=== PATIENT | female | born 1945 | race Caucasian/White ===

== ENCOUNTER 2022-10-28 13:54 | Emergency (ER) | payer OTHER ==
[2022-10-28 14:24] VITALS: BMI 17.6
[2022-10-28] MEDS ORDERED: ACETAMINOPHEN 1000 MG/100 ML BAG IVPB ONE (16:35)
[2022-10-28] MEDS ORDERED: LIDOCAINE 5% TOPICAL PATCH TP ONE (16:35)
[2022-10-28] MEDS ORDERED: METHOCARBAMOL 500 MG TABLET PO ONE (16:53)
[2022-10-28] MEDS ORDERED: ACETAMINOPHEN 325 MG TABLET (FP) PO ONE (17:12)
[2022-10-28] MEDS ORDERED: METHOCARBAMOL 500 MG TABLET ONE (17:13)
[2022-10-28] MEDS ORDERED: ACETAMINOPHEN 325 MG TABLET (FP) ONE (17:13)
[2022-10-28] MEDS ORDERED: LIDOCAINE 5% TOPICAL PATCH ONE (17:13)
[2022-10-28 17:51] VITALS: BP 143/80; PULSE 76; RESP 15; TEMP 98.7
[2022-10-28] MEDS ORDERED: LIDOCAINE PATCH REMOVAL MC SCH (22:00)
== END 2022-10-28 17:53 | disposition left against medical advice (07) ==
LOC: JER 13:54
DX: R53.1 Weakness (principal); G93.89 Other specified disorders of brain
CPT/HCPCS: 70450-TC; 72125-TC; 82962; 99284-25